=== PATIENT | male | born 1950 | race Two or more races ===

== ENCOUNTER 2016-09-28 10:14 | Inpatient (IN) | payer MEDICARE, MEDICAID ==
[2016-09-28] MEDS: Albuterol-Ipratrop 3 mg / 0.5 (3 ml) UD IH SCH ×3 (10:35→12:31)
--- NOTE | 2016-09-28 10:38 | C.PDOC ---
History Of Present Illness 66-year-old male, PMHx includes Asthma, COPD and Hypertension, presents to the emergency department with complaints of worsening shortness of breath for the past several weeks. Patient was seen by primary doctor, who referred him to ED for further evaluation. Denies nausea/vomiting, fevers or chills. Time Seen by Provider: 09/28/16 10:25 Chief Complaint (Nursing): Shortness Of Breath History Per: Patient History/Exam Limitations: no limitations Onset/Duration Of Symptoms: Days Current Symptoms Are (Timing): Still Present Past Medical History Reviewed: Historical Data, Nursing Documentation, Vital Signs Vital Signs: Last Vital Signs Temp 97.6 F 09/28/16 15:00 Pulse 62 09/28/16 15:00 Resp 20 09/28/16 15:00 BP 145/77 09/28/16 15:00 Pulse Ox 95 09/28/16 15:00 - Medical History PMH: Asthma, COPD (ASTHMA), HTN Denies: Chronic Kidney Disease Family History: States: No Known Family Hx - Social History Hx Tobacco Use: No (quit years ago) Hx Alcohol Use: No Hx Substance Use: No - Immunization History Hx Tetanus Toxoid Vaccination: No Hx Influenza Vaccination: No Hx Pneumococcal Vaccination: No Review Of Systems Except As Marked, All Systems Reviewed And Found Negative. Constitutional: Negative for: Fever, Chills Cardiovascular: Negative for: Chest Pain, Palpitations Respiratory: Positive for: Shortness of Breath, Wheezing. Negative for: Sputum Gastrointestinal: Negative for: Nausea, Vomiting Musculoskeletal: Negative for: Back Pain Neurological: Negative for: Headache Physical Exam - Physical Exam Appears: Non-toxic, No Acute Distress Neck: Normal ROM Chest: Symmetrical Cardiovascular: Rhythm Regular, No Murmur Respiratory: Decreased Breath Sounds, No Accessory Muscle Use, Wheezing (B/L) Gastrointestinal/Abdominal: Soft, No Tenderness Extremity: Normal ROM Neurological/Psych: Oriented x3 ED Course And Treatment - Laboratory Results Result Diagrams: 09/28/16 10:39 09/28/16 10:39 ECG: Interpreted By Me, Viewed By Me ECG Rhythm: Sinus Bradycardia ECG Interpretation: No Acute Changes Rate From EC O2 Sat by Pulse Oximetry: 94 Medical Decision Making Medical Decision Making: Pt remained stable in the ED with some improvement Discussed with dr Haddad, pt has been increasingly SOB despite OP meds Admission recommended Disposition - Disposition Disposition: HOSPITALIZED Disposition Time: 12:20 Condition: GOOD - Clinical Impression Clinical Impression: COPD exacerbation - Scribe Statement The provider has reviewed the documentation as recorded by the Scribe (Zac Coello) All medical record entries made by the Scribe were at my direction and personally dictated by me. I have reviewed the chart and agree that the record accurately reflects my personal performance of the history, physical exam, medical decision making, and the department course for this patient. I have also personally directed, reviewed, and agree with the discharge instructions and disposition.
[2016-09-28] MEDS ORDERED: Albuterol-Ipratrop 3 mg / 0.5 (3 ml) UD ONE (10:45)
[2016-09-28 10:49] LABS: BASO # 0.1 K/uL (0.0-0.2); BASO % 0.9 % (0.0-2.0); EOS # 0.2 K/uL (0.0-0.7); EOS % 2.4 % (0.0-4.0); HEMATOCRIT 47.5 % (35.0-51.0); LYMPH # 3.7 K/uL (1.0-4.3); LYMPH % 36.7 % (20.0-40.0); MEAN CELL VOLUME 93.7 fL (80.0-94.0); MEAN CORPUSCULAR HEMOGLOBIN 30.7 pg (27.0-31.0); MEAN CORPUSCULAR HGB CONC 32.8 g/dL (33.0-37.0); MEAN PLATELET VOLUME 7.1 fL (7.2-11.7); MONO # 1.3 K/uL (0.0-0.8); MONO % 12.5 % (0.0-10.0); RED CELL DISTRIBUTION WIDTH 14.4 % (11.5-14.5); WHITE BLOOD COUNT 10.1 K/uL (4.8-10.8)
[2016-09-28 11:29] LABS: BLOOD UREA NITROGEN 11 mg/dL (9-20); GFR AFRICAN-AMERICAN > 60; GLUCOSE,RANDOM 95 mg/dL (75-110); POTASSIUM 3.6 mmol/L (3.6-5.2); SODIUM 140 mmol/L (132-148)
[2016-09-28 11:30] LABS: ALB/GLOB RATIO 1.5 (1.0-2.1); CALCIUM 8.8 mg/dl (8.6-10.4); CARBON DIOXIDE 24 mmol/L (22-30); CHLORIDE 106 mmol/L (98-107)
[2016-09-28 11:31] LABS: ALKALINE PHOSPHATASE 44 U/L (38-126); ALT/SGPT 26 U/L (21-72); AST/SGOT 33 U/L (17-59); BILIRUBIN,TOTAL 0.6 mg/dL (0.2-1.3)
--- NOTE | 2016-09-28 11:40 | RAD ---
PROCEDURE: CHEST RADIOGRAPH, 1 VIEW HISTORY: Shortness of breath COMPARISON: 06/01/2016. FINDINGS: LUNGS: The lungs are well inflated and clear. There are fibrotic changes in both upper lobes. Macro COPD. PLEURA: No pneumothorax or pleural fluid seen. CARDIOVASCULAR: The heart is normal in size. Atherosclerotic aortic arch calcifications are present. OSSEOUS STRUCTURES: No significant abnormalities. VISUALIZED UPPER ABDOMEN: Normal. OTHER FINDINGS: None. IMPRESSION: No active pulmonary disease. COPD.
[2016-09-28 12:35] LABS: ABG ALLEN TEST POS; ARTERIAL BLOOD HGB O2 SAT 91.5 % (95.0-98.0); CARBOXYHEMOGLOBIN 1.7 % (0.5-1.5); DRAW SITE RBA; HHB 5.8 % (0.0-5.0)
--- NOTE | 2016-09-28 13:12 | CT ---
PROCEDURE: CT Chest without contrast HISTORY: COMPARISON: Chest radiograph from 09/28/2016 TECHNIQUE: Contiguous axial images were obtained through the chest without intravenous contrast enhancement. Sagittal and coronal reconstructions were performed. Radiation dose (DLP): 162.49 mGy-cm. This CT exam was performed using one or more of the following dose reduction techniques: Automated exposure control, adjustment of the mA and/or kV according to patient size, and/or use of iterative reconstruction technique. FINDINGS: LUNGS: There is diffuse centrilobular emphysema with upper lobe predominance. There is bilateral upper lobe paraseptal emphysema. There is biapical pleural parenchymal scarring. There is a 2 mm peripheral nodule in the inferior-most right lower lobe. There is peribronchial thickening in the lower lobes. There is subsegmental atelectasis/scarring in both lung bases, worse on the right. There is no focal consolidation. There are no endobronchial lesions. MEDIASTINUM: The aorta is normal in caliber. The heart is normal in size. No pericardial effusion. No pathologic mediastinal lymphadenopathy. PLEURA: No pleural fluid. No pneumothorax. BONES: No fracture. No destructive lesion. There is mild diffuse bone demineralization and multilevel degenerative changes in the spine. UPPER ABDOMEN: Grossly unremarkable. OTHER FINDINGS: None. IMPRESSION: Diffuse centrilobular emphysema with upper lobe predominance and bilateral upper lobe paraseptal emphysema. No active pulmonary disease.
[2016-09-28 14:01] VITALS: RESP 20
[2016-09-28] MEDS: Albuterol-Ipratrop 3 mg / 0.5 (3 ml) UD INH SCH ×2 (16:56→19:59)
[2016-09-28] MEDS: Tiotropium 18 mcg Cap For Inhalation INH SCH (16:56)
[2016-09-28] MEDS: Azithromycin 500 MG in Sodium Chloride 0.9% 250 ML IVPB SCH (18:24)
[2016-09-28] MEDS: MethylPREDNISolone 40 mg Vial IV SCH (18:25)
[2016-09-28] MEDS: Enoxaparin 40 mg Syringe SC SCH (18:25)
[2016-09-28] MEDS: Fluticasone-Salmeterol 500-50mcg Diskus INH SCH (19:58)
--- NOTE | 2016-09-28 23:15 | CP.PCM.HP ---
History of Present Illness - History of Present Illness History of Present Illness: A 66 yr old male with hx of HLD, EXSMOKER CAME WITH HX OF sob,UNABLE WALK MORE THAN half block with low saturation 88-90 on RA in office, was buying o2 before he see me .did rx with steroids and placed on steroids on daily improve symptoms partially. C\O COUGH,CHEST TIGHTNESS, UNABLE TO LIE FLAT, denies leg edema seen again in office with similar complaints, saturating 88-90 a5t rest Present on Admission - Present on Admission Any Indicators Present on Admission: No Review of Systems - Constitutional Constitutional: absent: Chills, Fever - EENT Eyes: Other Visual Disturbances Ears: Dizziness. absent: Disequilibrium Nose/Mouth/Throat: absent: Sinus Pressure, Hoarsness, Neck Pain - Cardiovascular Cardiovascular: Dyspnea on Exertion, Rapid Heart Rate. absent: Chest Pain, Edema - Respiratory Respiratory: Cough, Chest Congestion, Excessive Mucous Production. absent: Wheezing - Gastrointestinal Gastrointestinal: absent: Dyspepsia, Dysphagia, Vomiting - Genitourinary Genitourinary: Nocturia, Urinary Frequency. absent: Freq UTI - Musculoskeletal Musculoskeletal: Limited Range of Motion. absent: Abnormal Gait - Neurological Neurological: absent: Behavioral Changes, Headaches - Psychiatric Psychiatric: absent: Change in Libido, Hallucinations - Hematologic/Lymphatic Hematologic: absent: Lymphadenopathy Past Patient History - Past Medical History & Family History Past Medical History?: Yes - Past Social History Smoking Status: Former Smoker - CARDIAC Hx Hypertension: Yes - PULMONARY Hx Asthma: Yes Hx Chronic Obstructive Pulmonary Disease (COPD): Yes (ASTHMA) - NEUROLOGICAL Hx Neurological Disorder: No - HEENT Hx HEENT Problems: No - RENAL Hx Chronic Kidney Disease: No - ENDOCRINE/METABOLIC Hx Endocrine Disorders: No - HEMATOLOGICAL/ONCOLOGICAL Hx Blood Disorders: No - INTEGUMENTARY Hx Dermatological Problems: No - MUSCULOSKELETAL/RHEUMATOLOGICAL Hx Falls: No - GASTROINTESTINAL Hx Gastrointestinal Disorders: No - GENITOURINARY/GYNECOLOGICAL Hx Genitourinary Disorders: No Hx Prostate Problems: Yes - PSYCHIATRIC Hx Substance Use: No - SURGICAL HISTORY Hx Surgeries: Yes Hx Cataract Extraction: Yes - ANESTHESIA Hx Anesthesia: Yes Hx Anesthesia Reactions: Yes Hx Malignant Hyperthermia: No Has any member of the family had a problem w/ anesthesia?: No Meds Allergies/Adverse Reactions: Allergies Allergy/AdvReac Type Severity Reaction Status Date / Time No Known Allergies Allergy Verified 06/18/17 10:20 Physical Exam - Constitutional Appears: In Acute Distress Additional comments: mild respiratory distress - Head Exam Head Exam: ATRAUMATIC, NORMAL INSPECTION - Eye Exam Eye Exam: EOMI, Normal appearance, PERRL. absent: Scleral icterus - ENT Exam ENT Exam: Normal Exam - Neck Exam Neck exam: Negative for: Lymphadenopathy, Tenderness - Respiratory Exam Respiratory Exam: Accessory Muscle Use, Decreased Breath Sounds, Rhonchi, Respiratory Distress. absent: Rales, Wheezes - Cardiovascular Exam Cardiovascular Exam: Tachycardia, REGULAR RHYTHM, +S1, +S2 - GI/Abdominal Exam GI & Abdominal Exam: Normal Bowel Sounds, Soft. absent: Tenderness - Psychiatric Exam Psychiatric exam: Normal Affect, Normal Mood - Skin Skin Exam: Normal Color Results - Vital Signs Recent Vital Signs: Last Vital Signs Temp 97.6 F 09/28/16 15:00 Pulse 62 09/28/16 15:00 Resp 20 09/28/16 15:00 BP 145/77 09/28/16 15:00 Pulse Ox 94 L 09/28/16 18:16 - Labs Result Diagrams: 09/28/16 10:39 09/28/16 10:39 Labs: Laboratory Results - last 24 hr 09/28/16 12:30 Puncture Site Rba pCO2 41 pO2 59 L HCO3 25.7 ABG pH 7.41 ABG Total CO2 27.3 ABG O2 Saturation 94.0 L ABG Base Excess 1.2 ABG Hemoglobin 15.4 ABG Carboxyhemoglobin 1.7 H POC ABG HHb (Measured) 5.8 H ABG Methemoglobin 1.0 Wes Test Pos A-a O2 Difference 39.0 Respiratory Index 0.7 Hgb O2 Saturation 91.5 L FiO2 21.0 - EKG Data EKG Interpreted by: Myself EKG shows normal: Sinus rhythm Rate: Bradycardia Assessment & Plan (1) COPD exacerbation Status: Acute Comment: o2 nc. ct chest- emphema with pulmonary nodule. iv solumedrol. failed out pateint rx. 6 min walk test. benifit from home 02. ABG-PO2 59. ABX. NEBS RTC (2) HLD (hyperlipidemia) Status: Chronic Comment: RESUME MEDS (3) HTN (hypertension) Status: Chronic Comment: RESUME MEDS (4) BPH (benign prostatic hyperplasia) Status: Chronic Comment: RESUME MEDS Decision To Admit - Pt Status Changed To: Hospital Disposition Of: Inpatient - Admit Certification Admit to Inpatient:: After my assessment, the patient will require hospitalization for at least two midnights. This is because of the severity of symptoms shown, intensity of services needed, and/or the medical risk in this patient being treated as an outpatient. - InPatient: Physician Admission Certification:: as above - . Bed Request Type: Regular Admitting Physician: Tatyana Haddad
[2016-09-29] MEDS: Albuterol-Ipratrop 3 mg / 0.5 (3 ml) UD INH SCH ×4 (01:05→19:03)
[2016-09-29] MEDS: Fluticasone-Salmeterol 500-50mcg Diskus INH SCH ×2 (08:32→19:03)
[2016-09-29] MEDS: Tiotropium 18 mcg Cap For Inhalation INH SCH (08:32)
[2016-09-29] MEDS: MethylPREDNISolone 40 mg Vial IV SCH ×2 (09:48→17:59)
[2016-09-29] MEDS: Enoxaparin 40 mg Syringe SC SCH (09:49)
--- NOTE | 2016-09-29 14:05 | CP.PCM.PN ---
Subjective - Date & Time of Evaluation Date of Evaluation: 09/29/16 Time of Evaluation: 14:00 - Subjective Subjective: he is lying in bed,looks comfortable, with no 02 sat went down to 88, 6 minute walk done dropped to 86-86 with significant huffing . on meds. Objective - Vital Signs/Intake and Output Vital Signs (last 24 hours): Temp Pulse Resp BP Pulse Ox 97.9 F 72 20 116/75 95 09/29/16 07:38 09/29/16 07:38 09/29/16 07:38 09/29/16 07:38 09/29/16 07:38 Intake and Output: 09/29/16 09/29/16 06:59 18:59 Intake Total 600 Output Total 1600 Balance -1000 - Medications Medications: Current Medications Albuterol/Ipratropium (Duoneb 3 Mg/0.5 Mg (3 Ml) Ud) 3 ml INH RQ6 [facility] Last Admin: 09/29/16 08:32 Dose: 3 ml Amlodipine Besylate (Norvasc) 5 mg PO DAILY [facility] Last Admin: 09/29/16 09:49 Dose: 5 mg Enoxaparin Sodium (Lovenox) 40 mg SC DAILY [facility] Last Admin: 09/29/16 09:49 Dose: 40 mg Home Med (Patient's Own Medication) 0.5 tab PO DAILY [facility] Azithromycin 500 mg/ Sodium (Chloride) 250 mls @ 250 mls/hr IVPB Q24H [facility] Last Admin: 09/28/16 18:24 Dose: 250 mls/hr Methylprednisolone (Solu-Medrol) 40 mg IV BID [facility] Last Admin: 09/29/16 09:48 Dose: 40 mg Pneumococcal Polyvalent Vaccine (Pneumovax 23 Vaccine) 0.5 ml IM .ONCE ONE Stop: 10/01/16 10:01 Rosuvastatin Calcium (Crestor) 10 mg PO HS [facility] Last Admin: 09/28/16 21:03 Dose: 10 mg Fluticasone/Salmeterol (Advair Diskus 500/50) 1 puff INH RQ12 [facility] Last Admin: 09/29/16 08:32 Dose: 1 puff Tamsulosin HCl (Flomax) 0.4 mg PO DAILY [facility] Last Admin: 09/29/16 09:49 Dose: 0.4 mg Tiotropium [place] (Spiriva) 18 mcg INH RQ24 [facility] Last Admin: 09/29/16 08:32 Dose: 18 mcg - Additional Findings Additional findings: Head Exam Head Exam: ATRAUMATIC, NORMAL INSPECTION - Eye Exam Eye Exam: EOMI, Normal appearance, PERRL. absent: Scleral icterus - ENT Exam ENT Exam: Normal Exam - Neck Exam Neck exam: Negative for: Lymphadenopathy, Tenderness - Respiratory Exam Respiratory Exam: Accessory Muscle Use, Decreased Breath Sounds, Rhonchi, Respiratory Distress. absent: Rales, Wheezes - Cardiovascular Exam Cardiovascular Exam: Tachycardia, REGULAR RHYTHM, +S1, +S2 - GI/Abdominal Exam GI & Abdominal Exam: Normal Bowel Sounds, Soft. absent: Tenderness - Psychiatric Exam Psychiatric exam: Normal Affect, Normal Mood - Skin Skin Exam: Normal Color Assessment and Plan (1) COPD exacerbation Assessment & Plan: continue meds pulmonology consult d\w correctional case manager for home o2 Status: Acute (2) HLD (hyperlipidemia) Assessment & Plan: continue meds Status: Chronic (3) HTN (hypertension) Assessment & Plan: continue meds Status: Chronic (4) BPH (benign prostatic hyperplasia) Assessment & Plan: continue meds avodart changed to proscar Status: Chronic
[2016-09-29] MEDS: Azithromycin 500 MG in Sodium Chloride 0.9% 250 ML IVPB SCH (16:18)
[2016-09-30] MEDS: Albuterol-Ipratrop 3 mg / 0.5 (3 ml) UD INH SCH ×4 (01:57→19:46)
--- NOTE | 2016-09-30 07:57 | CARD ---
APPROVED REPORT EKG Measurement Heart [id number] <Conclusion> Sinus bradycardia Otherwise normal ECG
[2016-09-30] MEDS: Tiotropium 18 mcg Cap For Inhalation INH SCH (08:51)
[2016-09-30] MEDS: Fluticasone-Salmeterol 500-50mcg Diskus INH SCH ×2 (08:51→19:46)
[2016-09-30] MEDS: MethylPREDNISolone 40 mg Vial IV SCH ×2 (10:28→18:17)
[2016-09-30] MEDS: Enoxaparin 40 mg Syringe SC SCH (10:29)
--- NOTE | 2016-09-30 11:16 | CP.PCM.CON ---
History of Present Illness - History of Present Illness History of Present Illness: reason for consultation: shortness of breath 66-year-old male, PMHx of COPD and Hypertension, presented to the emergency department with complaints of worsening shortness of breath for the past several weeks. Patient was seen by primary doctor, who referred him to ED for further evaluation. Denies nausea/vomiting, fevers or chills. patient was started on IV steroids, nebulizer treatment. Now patient complaining of dyspnea on minimal exertion. Review of Systems - Review of Systems All systems: reviewed and no additional remarkable complaints except (shortness of breath) Past Patient History - Past Medical History & Family History Past Medical History?: Yes - Past Social History Smoking Status: Former Smoker - CARDIAC Hx Hypertension: Yes - PULMONARY Hx Chronic Obstructive Pulmonary Disease (COPD): Yes (ASTHMA) - NEUROLOGICAL Hx Neurological Disorder: No - HEENT Hx HEENT Problems: No - RENAL Hx Chronic Kidney Disease: No - ENDOCRINE/METABOLIC Hx Endocrine Disorders: No - HEMATOLOGICAL/ONCOLOGICAL Hx Blood Disorders: No - INTEGUMENTARY Hx Dermatological Problems: No - MUSCULOSKELETAL/RHEUMATOLOGICAL Hx Falls: No - GASTROINTESTINAL Hx Gastrointestinal Disorders: No - GENITOURINARY/GYNECOLOGICAL Hx Genitourinary Disorders: No Hx Prostate Problems: Yes - PSYCHIATRIC Hx Substance Use: No - SURGICAL HISTORY Hx Surgeries: Yes Hx Cataract Extraction: Yes - ANESTHESIA Hx Anesthesia: Yes Hx Anesthesia Reactions: Yes Hx Malignant Hyperthermia: No Has any member of the family had a problem w/ anesthesia?: No Meds Allergies/Adverse Reactions: Allergies Allergy/AdvReac Type Severity Reaction Status Date / Time No Known Allergies Allergy Verified 09/28/16 10:20 - Medications Medications: Current Medications Albuterol/Ipratropium (Duoneb 3 Mg/0.5 Mg (3 Ml) Ud) 3 ml INH RQ6 [facility] Last Admin: 09/30/16 08:50 Dose: 3 ml Amlodipine Besylate (Norvasc) 5 mg PO DAILY [facility] Last Admin: 09/30/16 10:29 Dose: 5 mg Enoxaparin Sodium (Lovenox) 40 mg SC DAILY [facility] Last Admin: 09/30/16 10:29 Dose: 40 mg Finasteride (Proscar) 5 mg PO DAILY [facility] Last Admin: 09/30/16 10:29 Dose: 5 mg Azithromycin 500 mg/ Sodium (Chloride) 250 mls @ 250 mls/hr IVPB Q24H [facility] Last Admin: 09/29/16 16:18 Dose: 250 mls/hr Methylprednisolone (Solu-Medrol) 40 mg IV BID [facility] Last Admin: 09/30/16 10:28 Dose: 40 mg Pneumococcal Polyvalent Vaccine (Pneumovax 23 Vaccine) 0.5 ml IM .ONCE ONE Stop: 10/01/16 10:01 Rosuvastatin Calcium (Crestor) 10 mg PO HS [facility] Last Admin: 09/29/16 21:16 Dose: 10 mg Fluticasone/Salmeterol (Advair Diskus 500/50) 1 puff INH RQ12 [facility] Last Admin: 09/30/16 08:51 Dose: 1 puff Tamsulosin HCl (Flomax) 0.4 mg PO DAILY [facility] Last Admin: 09/30/16 10:29 Dose: 0.4 mg Tiotropium [place] (Spiriva) 18 mcg INH RQ24 [facility] Last Admin: 09/30/16 08:51 Dose: 18 mcg Physical Exam - Constitutional Appears: No Acute Distress - Head Exam Head Exam: ATRAUMATIC, NORMOCEPHALIC - Eye Exam Eye Exam: Normal appearance - ENT Exam ENT Exam: Mucous Membranes Moist - Neck Exam Neck exam: Positive for: Normal Inspection - Respiratory Exam Respiratory Exam: Decreased Breath Sounds - Cardiovascular Exam Cardiovascular Exam: REGULAR RHYTHM - GI/Abdominal Exam GI & Abdominal Exam: Normal Bowel Sounds, Soft - Extremities Exam Extremities exam: Positive for: normal inspection - Neurological Exam Neurological exam: Alert, Oriented x3 Results - Vital Signs Recent Vital Signs: Last Vital Signs Temp 98.2 F 09/30/16 08:56 Pulse 79 09/30/16 08:56 Resp 20 09/30/16 08:56 BP 121/81 09/30/16 08:56 Pulse Ox 97 09/30/16 08:56 - Labs Result Diagrams: 09/28/16 10:39 09/28/16 10:39 Assessment & Plan (1) COPD exacerbation Status: Acute Comment: change IV steroids to by mouth prednisone. continue nebulizer treatment, Spiriva. Pulmonary function test. Patient desaturates on exertion and will benefit from home oxygen
[2016-09-30] MEDS: Azithromycin 500 MG in Sodium Chloride 0.9% 250 ML IVPB SCH (16:33)
--- NOTE | 2016-09-30 22:35 | CP.PCM.PN ---
Subjective - Date & Time of Evaluation Date of Evaluation: 09/30/16 Time of Evaluation: 20:00 - Subjective Subjective: feeling better . stable vitals pulmonology seen patient no new labs on iv solumedrol Objective - Vital Signs/Intake and Output Vital Signs (last 24 hours): Temp Pulse Resp BP Pulse Ox 98.2 F 83 20 105/67 95 09/30/16 15:00 09/30/16 15:00 09/30/16 15:00 09/30/16 15:00 09/30/16 15:00 - Medications Medications: Current Medications Albuterol/Ipratropium (Duoneb 3 Mg/0.5 Mg (3 Ml) Ud) 3 ml INH RQ6 [facility] Last Admin: 09/30/16 19:46 Dose: 3 ml Amlodipine Besylate (Norvasc) 5 mg PO DAILY [facility] Last Admin: 09/30/16 10:29 Dose: 5 mg Enoxaparin Sodium (Lovenox) 40 mg SC DAILY [facility] Last Admin: 09/30/16 10:29 Dose: 40 mg Finasteride (Proscar) 5 mg PO DAILY [facility] Last Admin: 09/30/16 10:29 Dose: 5 mg Azithromycin 500 mg/ Sodium (Chloride) 250 mls @ 250 mls/hr IVPB Q24H [facility] Last Admin: 09/30/16 16:33 Dose: 250 mls/hr Pneumococcal Polyvalent Vaccine (Pneumovax 23 Vaccine) 0.5 ml IM .ONCE ONE Stop: 10/01/16 10:01 Prednisone (Prednisone Tab) 40 mg PO DAILY [facility] Rosuvastatin Calcium (Crestor) 10 mg PO HS [facility] Last Admin: 09/30/16 21:50 Dose: 10 mg Fluticasone/Salmeterol (Advair Diskus 500/50) 1 puff INH RQ12 [facility] Last Admin: 09/30/16 19:46 Dose: 1 puff Tamsulosin HCl (Flomax) 0.4 mg PO DAILY [facility] Last Admin: 09/30/16 10:29 Dose: 0.4 mg Tiotropium [place] (Spiriva) 18 mcg INH RQ24 [facility] Last Admin: 09/30/16 08:51 Dose: 18 mcg - Additional Findings Additional findings: Head Exam Head Exam: ATRAUMATIC, NORMAL INSPECTION - Eye Exam Eye Exam: EOMI, Normal appearance, PERRL. absent: Scleral icterus - ENT Exam ENT Exam: Normal Exam - Neck Exam Neck exam: Negative for: Lymphadenopathy, Tenderness - Respiratory Exam Respiratory Exam: Accessory Muscle Use, Decreased Breath Sounds, Rhonchi, Respiratory Distress. absent: Rales, Wheezes - Cardiovascular Exam Cardiovascular Exam: Tachycardia, REGULAR RHYTHM, +S1, +S2 - GI/Abdominal Exam GI & Abdominal Exam: Normal Bowel Sounds, Soft. absent: Tenderness - Psychiatric Exam Psychiatric exam: Normal Affect, Normal Mood - Skin Skin Exam: Normal Color Assessment and Plan (1) COPD exacerbation Assessment & Plan: continue meds pulmonology on board changed to po prednisone from am d\w family service caseworker for home o2 possible d\c in am if HOME o2 can be arranged PFTS Status: Acute (2) HLD (hyperlipidemia) Assessment & Plan: continue meds Status: Chronic (3) HTN (hypertension) Assessment & Plan: will hold norvasc, as BP got better Status: Chronic (4) BPH (benign prostatic hyperplasia) Assessment & Plan: continue meds avodart changed to proscar Status: Chronic Assessment and Plan (1) COPD exacerbation Status: Acute (2) HLD (hyperlipidemia) Status: Chronic (3) HTN (hypertension) Status: Chronic (4) BPH (benign prostatic hyperplasia) Status: Chronic
[2016-10-01] MEDS: Albuterol-Ipratrop 3 mg / 0.5 (3 ml) UD INH SCH ×4 (02:09→20:34)
[2016-10-01] MEDS: Fluticasone-Salmeterol 500-50mcg Diskus INH SCH ×2 (08:23→20:34)
[2016-10-01] MEDS: Tiotropium 18 mcg Cap For Inhalation INH SCH (08:23)
[2016-10-01] MEDS ORDERED: Pneumococcal 23-Valent Vaccine IM ONE (10:00)
--- NOTE | 2016-10-01 10:35 | CP.PCM.PN ---
Subjective - Date & Time of Evaluation Date of Evaluation: 10/01/16 Time of Evaluation: 10:35 - Subjective Subjective: Alert, awake, no acute distress now. Objective - Vital Signs/Intake and Output Vital Signs (last 24 hours): Temp Pulse Resp BP Pulse Ox 98 F 83 20 127/79 95 10/01/16 07:21 10/01/16 10:09 10/01/16 07:21 10/01/16 07:21 10/01/16 10:09 Intake and Output: 10/01/16 10/01/16 06:59 18:59 Intake Total 790 Balance 790 - Medications Medications: Current Medications Albuterol/Ipratropium (Duoneb 3 Mg/0.5 Mg (3 Ml) Ud) 3 ml INH RQ6 [facility] Last Admin: 10/01/16 08:23 Dose: 3 ml Enoxaparin Sodium (Lovenox) 40 mg SC DAILY [facility] Last Admin: 09/30/16 10:29 Dose: 40 mg Finasteride (Proscar) 5 mg PO DAILY [facility] Last Admin: 09/30/16 10:29 Dose: 5 mg Azithromycin 500 mg/ Sodium (Chloride) 250 mls @ 250 mls/hr IVPB Q24H [facility] Last Admin: 09/30/16 16:33 Dose: 250 mls/hr Prednisone (Prednisone Tab) 40 mg PO DAILY [facility] Rosuvastatin Calcium (Crestor) 10 mg PO HS [facility] Last Admin: 09/30/16 21:50 Dose: 10 mg Fluticasone/Salmeterol (Advair Diskus 500/50) 1 puff INH RQ12 [facility] Last Admin: 10/01/16 08:23 Dose: 1 puff Tamsulosin HCl (Flomax) 0.4 mg PO DAILY [facility] Last Admin: 09/30/16 10:29 Dose: 0.4 mg Tiotropium [place] (Spiriva) 18 mcg INH RQ24 [facility] Last Admin: 10/01/16 08:23 Dose: 18 mcg Assessment and Plan - Assessment and Plan (Free Text) Assessment: patient is seen and examined. Alert and oriented x3, no distress at rest. Noticed with desaturation to 86% while walking with physical therapists. Seen by the client solutions specialist, advised for home oxygen to arrange, patient will benefit from that. Diagnosed with chronic stable COPD, COPD exacerbation has been resolved. Discharge plan when home oxygen is delivered as per DR Haddad.
[2016-10-01] MEDS: Enoxaparin 40 mg Syringe SC SCH (10:37)
--- NOTE | 2016-10-01 13:16 | CP.PCM.PN ---
Subjective - Date & Time of Evaluation Date of Evaluation: 10/01/16 Time of Evaluation: 10:15 - Subjective Subjective: Patient seen and examined. Sitting comfortably in no acute distress Patient states breathing much improved Still desaturates on exertion Afebrile Objective - Vital Signs/Intake and Output Vital Signs (last 24 hours): Temp Pulse Resp BP Pulse Ox 98 F 83 20 127/79 95 10/01/16 07:21 10/01/16 10:09 10/01/16 07:21 10/01/16 07:21 10/01/16 10:09 Intake and Output: 10/01/16 10/01/16 06:59 18:59 Intake Total 790 Balance 790 - Medications Medications: Current Medications Albuterol/Ipratropium (Duoneb 3 Mg/0.5 Mg (3 Ml) Ud) 3 ml INH RQ6 [facility] Last Admin: 10/01/16 08:23 Dose: 3 ml Enoxaparin Sodium (Lovenox) 40 mg SC DAILY [facility] Last Admin: 10/01/16 10:37 Dose: 40 mg Finasteride (Proscar) 5 mg PO DAILY [facility] Last Admin: 10/01/16 10:36 Dose: 5 mg Azithromycin 500 mg/ Sodium (Chloride) 250 mls @ 250 mls/hr IVPB Q24H [facility] Last Admin: 09/30/16 16:33 Dose: 250 mls/hr Prednisone (Prednisone Tab) 40 mg PO DAILY [facility] Last Admin: 10/01/16 10:36 Dose: 40 mg Rosuvastatin Calcium (Crestor) 10 mg PO HS [facility] Last Admin: 09/30/16 21:50 Dose: 10 mg Fluticasone/Salmeterol (Advair Diskus 500/50) 1 puff INH RQ12 [facility] Last Admin: 10/01/16 08:23 Dose: 1 puff Tamsulosin HCl (Flomax) 0.4 mg PO DAILY [facility] Last Admin: 10/01/16 10:36 Dose: 0.4 mg Tiotropium [place] (Spiriva) 18 mcg INH RQ24 [facility] Last Admin: 10/01/16 08:23 Dose: 18 mcg - Head Exam Head Exam: ATRAUMATIC, NORMOCEPHALIC - Eye Exam Eye Exam: Normal appearance - ENT Exam ENT Exam: Mucous Membranes Moist - Neck Exam Neck Exam: Normal Inspection - Respiratory Exam Respiratory Exam: Decreased Breath Sounds - Cardiovascular Exam Cardiovascular Exam: REGULAR RHYTHM - GI/Abdominal Exam GI & Abdominal Exam: Soft, Normal Bowel Sounds - Extremities Exam Extremities Exam: Normal Inspection - Neurological Exam Neurological Exam: Alert, Oriented x3 Assessment and Plan (1) COPD exacerbation Assessment & Plan: Patient condition much improved Continue prednisone in tapering dose, nebulizer treatment spiriva Patient still desaturates to 86% on exertion and will need home oxygen, as exacerbation of COPD has resolved Pulmonary function test as outpatient Status: Acute
[2016-10-01] MEDS: Azithromycin 500 MG in Sodium Chloride 0.9% 250 ML IVPB SCH (16:44)
--- NOTE | 2016-10-01 22:56 | CP.PCM.PN ---
Subjective - Date & Time of Evaluation Date of Evaluation: 10/01/16 Time of Evaluation: 08:00 - Subjective Subjective: awaiting for home o2 approval patient 86% on RA on level walking, destautrates to 84 on 2-3 steps .he has to take 8-10 steps at home. other chavez feeling better Objective - Vital Signs/Intake and Output Vital Signs (last 24 hours): Temp Pulse Resp BP Pulse Ox 97.5 F L 82 20 121/74 95 10/01/16 16:00 10/01/16 16:00 10/01/16 16:00 10/01/16 16:00 10/01/16 16:00 Intake and Output: 10/01/16 10/02/16 18:59 06:59 Intake Total 400 Balance 400 - Medications Medications: Current Medications Albuterol/Ipratropium (Duoneb 3 Mg/0.5 Mg (3 Ml) Ud) 3 ml INH RQ6 [facility] Last Admin: 10/01/16 20:34 Dose: 3 ml Azithromycin (Zithromax) 500 mg PO Q24H [facility] Enoxaparin Sodium (Lovenox) 40 mg SC DAILY [facility] Last Admin: 10/01/16 10:37 Dose: 40 mg Finasteride (Proscar) 5 mg PO DAILY [facility] Last Admin: 10/01/16 10:36 Dose: 5 mg Prednisone (Prednisone Tab) 40 mg PO DAILY [facility] Last Admin: 10/01/16 10:36 Dose: 40 mg Rosuvastatin Calcium (Crestor) 10 mg PO HS [facility] Last Admin: 10/01/16 21:16 Dose: 10 mg Fluticasone/Salmeterol (Advair Diskus 500/50) 1 puff INH RQ12 [facility] Last Admin: 10/01/16 20:34 Dose: 1 puff Tamsulosin HCl (Flomax) 0.4 mg PO DAILY [facility] Last Admin: 10/01/16 10:36 Dose: 0.4 mg Tiotropium [place] (Spiriva) 18 mcg INH RQ24 [facility] Last Admin: 10/01/16 08:23 Dose: 18 mcg - Additional Findings Additional findings: Head Exam Head Exam: ATRAUMATIC, NORMAL INSPECTION - Eye Exam Eye Exam: EOMI, Normal appearance, PERRL. absent: Scleral icterus - ENT Exam ENT Exam: Normal Exam - Neck Exam Neck exam: Negative for: Lymphadenopathy, Tenderness - Respiratory Exam Respiratory Exam: no Accessory Muscle Use at rest , Decreased Breath Sounds, no Rhonchi, Respiratory Distress. absent: Rales, Wheezes - Cardiovascular Exam Cardiovascular Exam: no Tachycardia, REGULAR RHYTHM, +S1, +S2 - GI/Abdominal Exam GI & Abdominal Exam: Normal Bowel Sounds, Soft. absent: Tenderness - Psychiatric Exam Psychiatric exam: Normal Affect, Normal Mood - Skin Skin Exam: Normal Color Assessment and Plan (1) COPD exacerbation Status: Resolved (2) HLD (hyperlipidemia) Status: Chronic (3) HTN (hypertension) Status: Chronic (4) BPH (benign prostatic hyperplasia) Status: Chronic - Assessment and Plan (Free Text) Plan: waiting for home o2 on prednisone at home home PT Continue other meds possible d\c in am
[2016-10-02] MEDS: Albuterol-Ipratrop 3 mg / 0.5 (3 ml) UD INH SCH ×3 (01:00→14:53)
[2016-10-02] MEDS: Fluticasone-Salmeterol 500-50mcg Diskus INH SCH (08:24)
[2016-10-02] MEDS: Tiotropium 18 mcg Cap For Inhalation INH SCH (08:25)
[2016-10-02 08:37] VITALS: BP 126/68; PULSE 74; TEMP 98.3; O2SAT 95
[2016-10-02] MEDS: Enoxaparin 40 mg Syringe SC SCH (09:19)
--- NOTE | 2016-10-02 11:56 | CP.PCM.PN ---
Subjective - Date & Time of Evaluation Date of Evaluation: 10/02/16 Time of Evaluation: 08:35 - Subjective Subjective: patient seen and examined. Lying comfortably in no acute distress but complaining of dyspnea on exertion Awaiting for home oxygen Objective - Vital Signs/Intake and Output Vital Signs (last 24 hours): Temp Pulse Resp BP Pulse Ox 98.3 F 74 20 126/68 95 10/02/16 08:00 10/02/16 08:00 10/02/16 08:00 10/02/16 08:00 10/02/16 08:00 Intake and Output: 10/02/16 10/02/16 06:59 18:59 Intake Total 890 Balance 890 - Medications Medications: Current Medications Albuterol/Ipratropium (Duoneb 3 Mg/0.5 Mg (3 Ml) Ud) 3 ml INH RQ6 [facility] Last Admin: 10/02/16 08:24 Dose: 3 ml Azithromycin (Zithromax) 500 mg PO Q24H [facility] Enoxaparin Sodium (Lovenox) 40 mg SC DAILY [facility] Last Admin: 10/02/16 09:19 Dose: 40 mg Finasteride (Proscar) 5 mg PO DAILY [facility] Last Admin: 10/02/16 09:18 Dose: 5 mg Prednisone (Prednisone Tab) 40 mg PO DAILY [facility] Last Admin: 10/02/16 09:18 Dose: 40 mg Rosuvastatin Calcium (Crestor) 10 mg PO HS [facility] Last Admin: 10/01/16 21:16 Dose: 10 mg Fluticasone/Salmeterol (Advair Diskus 500/50) 1 puff INH RQ12 [facility] Last Admin: 10/02/16 08:24 Dose: 1 puff Tamsulosin HCl (Flomax) 0.4 mg PO DAILY [facility] Last Admin: 10/02/16 09:18 Dose: 0.4 mg Tiotropium [place] (Spiriva) 18 mcg INH RQ24 [facility] Last Admin: 10/02/16 08:25 Dose: 18 mcg - Constitutional Appears: No Acute Distress - Head Exam Head Exam: ATRAUMATIC, NORMOCEPHALIC - Eye Exam Eye Exam: Normal appearance - ENT Exam ENT Exam: Mucous Membranes Moist - Neck Exam Neck Exam: Normal Inspection - Respiratory Exam Respiratory Exam: Decreased Breath Sounds - Cardiovascular Exam Cardiovascular Exam: REGULAR RHYTHM - GI/Abdominal Exam GI & Abdominal Exam: Soft, Normal Bowel Sounds - Extremities Exam Extremities Exam: Normal Inspection Assessment and Plan (1) COPD exacerbation Assessment & Plan: continue prednisone, inhaled steroids and nebulizer treatment Awaiting for home xygen Status: Acute
--- NOTE | 2016-10-02 14:29 | CP.PCM.PN ---
Subjective - Date & Time of Evaluation Date of Evaluation: 10/02/16 Time of Evaluation: 14:00 - Subjective Subjective: Pt seen today , states feels better, comfortable , denies any chest pain , sob with activity and de saturates with activity o2 via nasal canula in use Objective - Vital Signs/Intake and Output Vital Signs (last 24 hours): Temp Pulse Resp BP Pulse Ox 98.3 F 74 20 126/68 95 10/02/16 08:00 10/02/16 12:32 10/02/16 08:00 10/02/16 12:32 10/02/16 12:32 Intake and Output: 10/02/16 10/02/16 06:59 18:59 Intake Total 890 360 Balance 890 360 - Medications Medications: Current Medications Albuterol/Ipratropium (Duoneb 3 Mg/0.5 Mg (3 Ml) Ud) 3 ml INH RQ6 [facility] Last Admin: 10/02/16 08:24 Dose: 3 ml Azithromycin (Zithromax) 500 mg PO Q24H [facility] Enoxaparin Sodium (Lovenox) 40 mg SC DAILY [facility] Last Admin: 10/02/16 09:19 Dose: 40 mg Finasteride (Proscar) 5 mg PO DAILY [facility] Last Admin: 10/02/16 09:18 Dose: 5 mg Prednisone (Prednisone Tab) 40 mg PO DAILY [facility] Last Admin: 10/02/16 09:18 Dose: 40 mg Rosuvastatin Calcium (Crestor) 10 mg PO HS [facility] Last Admin: 10/01/16 21:16 Dose: 10 mg Fluticasone/Salmeterol (Advair Diskus 500/50) 1 puff INH RQ12 [facility] Last Admin: 10/02/16 08:24 Dose: 1 puff Tamsulosin HCl (Flomax) 0.4 mg PO DAILY [facility] Last Admin: 10/02/16 09:18 Dose: 0.4 mg Tiotropium [place] (Spiriva) 18 mcg INH RQ24 [facility] Last Admin: 10/02/16 08:25 Dose: 18 mcg Assessment and Plan - Assessment and Plan (Free Text) Assessment: A/P 66 yr old male admitted for exc. COPD spo2 de saturates with activity Pt require oxygen at home an d oxygen delivered for use at home and transportation D/W Dr. Bonilla. stable for discharge home today and f/u with Dr. Bonilla office on at 11 am Discharge plan discussed with patient ,w who understands and agrees wiht plan Pt instructed to returns to ED if symptoms get worse or any other concerning symptoms
--- NOTE | 2016-10-02 23:18 | CP.PCM.DIS ---
Provider - Provider Date of Admission: 09/28/16 12:14 Attending physician: Tatyana Haddad MD Time Spent in preparation of Discharge (in minutes): 30 Diagnosis - Discharge Diagnosis (1) COPD exacerbation Status: Resolved (2) HLD (hyperlipidemia) Status: Chronic (3) HTN (hypertension) Status: Chronic (4) BPH (benign prostatic hyperplasia) Status: Chronic Comment: continue all meds. d\c prednisone 40 mg. home o2 approved. d\w patient. d\c home and will f\u in a week Hospital Course - Lab Results Lab Results: Most Recent Lab Values WBC 10.1 K/uL (4.8-10.8) 09/28/16 10:39 RBC 5.07 Mil/uL (4.40-5.90) 09/28/16 10:39 Hgb 15.6 g/dL (12.0-18.0) 09/28/16 10:39 Hct 47.5 % (35.0-51.0) 09/28/16 10:39 MCV 93.7 fL (80.0-94.0) 09/28/16 10:39 MCH 30.7 pg (27.0-31.0) 09/28/16 10:39 MCHC 32.8 g/dL (33.0-37.0) L 09/28/16 10:39 RDW 14.4 % (11.5-14.5) 09/28/16 10:39 Plt Count 265 K/uL (130-400) 09/28/16 10:39 MPV 7.1 fL (7.2-11.7) L 09/28/16 10:39 Neut % (Auto) 47.5 % (50.0-75.0) L 09/28/16 10:39 Lymph % (Auto) 36.7 % (20.0-40.0) 09/28/16 10:39 [place] % (Auto) 12.5 % (0.0-10.0) H 09/28/16 10:39 Eos % (Auto) 2.4 % (0.0-4.0) 09/28/16 10:39 Baso % (Auto) 0.9 % (0.0-2.0) 09/28/16 10:39 Neut # 4.8 K/uL (1.8-7.0) 09/28/16 10:39 Lymph # 3.7 K/uL (1.0-4.3) 09/28/16 10:39 [place] # 1.3 K/uL (0.0-0.8) H 09/28/16 10:39 Eos # 0.2 K/uL (0.0-0.7) 09/28/16 10:39 Baso # 0.1 K/uL (0.0-0.2) 09/28/16 10:39 Puncture Site Rba 09/28/16 12:30 pCO2 41 mm/Hg (35-45) 09/28/16 12:30 pO2 59 mm/Hg (80-100) L 09/28/16 12:30 HCO3 25.7 mmol/L (21-28) 09/28/16 12:30 ABG pH 7.41 (7.35-7.45) 09/28/16 12:30 ABG Total CO2 27.3 mmol/L (22-28) 09/28/16 12:30 ABG O2 Saturation 94.0 % (95-98) L 09/28/16 12:30 ABG Base Excess 1.2 mmol/L (-2.0-3.0) 09/28/16 12:30 ABG Hemoglobin 15.4 g/dL (11.7-17.4) 09/28/16 12:30 ABG Carboxyhemoglobin 1.7 % (0.5-1.5) H 09/28/16 12:30 POC ABG HHb (Measured) 5.8 % (0.0-5.0) H 09/28/16 12:30 ABG Methemoglobin 1.0 % (0.0-3.0) 09/28/16 12:30 Wes Test Pos 09/28/16 12:30 A-a O2 Difference 39.0 mm/Hg 09/28/16 12:30 Respiratory Index 0.7 09/28/16 12:30 Hgb O2 Saturation 91.5 % (95.0-98.0) L 09/28/16 12:30 FiO2 21.0 % 09/28/16 12:30 Sodium 140 mmol/L (132-148) 09/28/16 10:39 Potassium 3.6 mmol/L (3.6-5.2) 09/28/16 10:39 Chloride 106 mmol/L (98-107) 09/28/16 10:39 Carbon Dioxide 24 mmol/L (22-30) 09/28/16 10:39 Anion Gap 14 (10-20) 09/28/16 10:39 BUN 11 mg/dL (9-20) 09/28/16 10:39 Creatinine 0.7 MG/DL (0.8-1.5) L 09/28/16 10:39 Est GFR ( Amer) > 60 09/28/16 10:39 Est GFR (Non-Af Amer) > 60 09/28/16 10:39 Random Glucose 95 mg/dL (75-110) 09/28/16 10:39 Calcium 8.8 mg/dl (8.6-10.4) 09/28/16 10:39 Total Bilirubin 0.6 mg/dL (0.2-1.3) 09/28/16 10:39 AST 33 U/L (17-59) 09/28/16 10:39 ALT 26 U/L (21-72) 09/28/16 10:39 Alkaline Phosphatase 44 U/L (38-126) 09/28/16 10:39 Troponin I < 0.0120 ng/mL (0.00-0.120) 09/28/16 10:39 NT-Pro-B Natriuret Pep 66.0 pg/mL (0-900) 09/28/16 10:39 Total Protein 7.0 g/dL (6.3-8.3) 09/28/16 10:39 Albumin 4.2 g/dL (3.5-5.0) 09/28/16 10:39 Globulin 2.8 gm/dL (2.2-3.9) 09/28/16 10:39 Albumin/Globulin Ratio 1.5 (1.0-2.1) 09/28/16 10:39 - Hospital Course Hospital Course: uneventful Discharge Exam - Head Exam Head Exam: ATRAUMATIC, NORMOCEPHALIC - Additional Findings Additional findings: Head Exam Head Exam: ATRAUMATIC, NORMAL INSPECTION - Eye Exam Eye Exam: EOMI, Normal appearance, PERRL. absent: Scleral icterus - ENT Exam ENT Exam: Normal Exam - Neck Exam Neck exam: Negative for: Lymphadenopathy, Tenderness - Respiratory Exam Respiratory Exam: no Accessory Muscle Use, Decreased Breath Sounds, no Rhonchi , Respiratory Distress. absent: Rales, Wheezes - Cardiovascular Exam Cardiovascular Exam: no Tachycardia, REGULAR RHYTHM, +S1, +S2 - GI/Abdominal Exam GI & Abdominal Exam: Normal Bowel Sounds, Soft. absent: Tenderness - Psychiatric Exam Psychiatric exam: Normal Affect, Normal Mood - Skin Skin Exam: Normal Color Discharge Plan - Follow Up Plan Condition: GOOD Disposition: HOME/ ROUTINE Instructions: COPD (Chronic Obstructive Pulmonary Disease) (DC), Dyspnea (GEN) , Hypoxia (GEN) Referrals: Tatyana Haddad MD [Staff Provider] -
== END 2016-10-02 16:05 | disposition home or self-care (01) | DRG 192 ==
LOC: C.ER 10:14 → C.9E 12:14 → C.3T 12:25
PROVIDERS: ADMIT Internal Medicine; ATTEND Internal Medicine
DX: J44.1 Chronic obstructive pulmonary disease with (acute) exacerbation (principal); J45.909 Unspecified asthma, uncomplicated; R09.02 Hypoxemia; I10 Essential (primary) hypertension; N40.0 Benign prostatic hyperplasia without lower urinary tract symptoms; E78.5 Hyperlipidemia, unspecified; Z87.891 Personal history of nicotine dependence